=== PATIENT | female | born 1950 | race Caucasian/White ===

== ENCOUNTER 2017-05-18 14:06 | Emergency (ER) | payer MEDICARE, MEDICAID ==
[2017-05-18] MEDS ORDERED: Aspirin 81 MG Tab.Chew PO ONE (14:19)
[2017-05-18] MEDS ORDERED: Sodium Chloride 0.9% 10 ML Syringe FLUSH PRN (14:19)
--- NOTE | 2017-05-18 15:15 | CR ---
Left shoulder: Three views of the left shoulder were obtained. Comparison: No previous left shoulder study. Glenohumeral joint and acromioclavicular joint appears within normal limits. No fracture, dislocation or other bony abnormality is seen. Impression: 1. No abnormality is identified on three-view left shoulder study. Diagnostic code #1
--- NOTE | 2017-05-18 15:15 | CR ---
Chest: Frontal view of the chest was obtained. Comparison: Previous chest x-ray 11/21/15. Heart size and mediastinum are within normal limits for technique. Previous sternotomy is seen. Surgical clips are also noted within the left hilar region. Lungs are clear with no acute infiltrates. Bony structures are grossly intact. Impression: 1. Incidental findings. Nothing acute is seen on frontal chest x-ray. Diagnostic code #2
[2017-05-18 15:47] VITALS: BP 106/33
--- NOTE | 2017-05-18 15:52 | EDM.PDOC ---
ED HPI GENERAL MEDICAL PROBLEM - General Chief Complaint: Upper Extremity Injury/Pain Stated Complaint: [facility] Time Seen by Provider: 05/18/17 14:19 Source of Information: Reports: Patient, EMS History Limitations: Reports: No Limitations - History of Present Illness INITIAL COMMENTS - FREE TEXT/NARRATIVE: The patient presents with left shoulder pain. This has been going on for a couple days. She did not injure her shoulder in any way. She did not fall and she was not lifting anything. She denies chest pain, shortness of breath, abdominal pain, nausea, vomiting or diarrhea. There is no edema or pain in her legs. She has a history of coronary artery bipass graft. Moving or walking does not make it worse. Onset: Gradual Duration: Day(s): (Yesterday) Location: Reports: Upper Extremity, Left (Shoulder) Quality: Reports: Ache Severity: Mild Improves with: Reports: None Worsens with: Reports: None Associated Symptoms: Reports: No Other Symptoms Left Arm Pain Score (Numeric/FACES): 5 - Related Data Allergies Allergy/AdvReac Type Severity Reaction Status Date / Time dextrose [From Metamucil] Allergy Intermediate Hives Verified 05/18/17 14:11 psyllium husk Allergy Intermediate Hives Verified 05/18/17 14:11 [From Metamucil] psyllium seed Allergy Intermediate Hives Verified 05/18/17 14:11 [From Metamucil] sucrose [From Metamucil] Allergy Intermediate Hives Verified 05/18/17 14:11 Home Meds: Home Meds Carboxymethylcell/Hypromellose [GenTeal Moderate to Severe Gel Drops] 1 dose EYELF DAILY 08/20/15 [History] Furosemide [Lasix] 20 mg PO DAILY 08/20/15 [History] Insulin Aspart [NovoLOG] 20 unit SUBCUT WITHBREAKFAST 08/20/15 [History] Insulin Glarg,Human.Rec.Analog [Lantus] 54 unit SUBCUT QAM 08/20/15 [History] Lisinopril [Prinivil] 1.25 mg PO DAILY 08/20/15 [History] Metoprolol Succinate [Toprol XL] 100 mg PO DAILY 08/20/15 [History] Rosuvastatin Calcium [Crestor] 5 mg PO DAILY 08/20/15 [History] prednisoLONE Acetate [Pred Forte 1% Ophth Soln] 1 drop EYERT DAILY 08/20/15 [ History] B2/Vit A,C & E/Lut/Zeaxanth/Mn [Icaps] 1 each PO BID 11/21/15 [History] Insulin Aspart [Novolog Flexpen] 26 units SUBCUT WITHLUNCH 11/21/15 [History] Insulin Aspart [Novolog Flexpen] 30 units SUBCUT 1700 11/21/15 [History] Digoxin [Lanoxin] 125 mcg PO DAILY 10/20/16 [History] Insulin Glarg,Human.Rec.Analog [Lantus Solostar] 54 unit SUBCUT BEDTIME [History] Rivaroxaban [Xarelto] 20 mg PO QPM 10/20/16 [History] metFORMIN [Glucophage] 500 mg PO QAM 10/20/16 [History] Past Medical History Other HEENT History: deaf L ear, diabetic retinopathy, laser eye surgery, cataract surgery x 2 Cardiovascular History: Reports: Hypertension Gastrointestinal History: Reports: Other (See Below) Other Gastrointestinal History: draining umbilicus, morbid obesity Genitourinary History: Reports: Chronic Renal Insuffiency Other Genitourinary History: renal insufficiency Endocrine/Metabolic History: Reports: Diabetes, Type II, Obesity/BMI 30+ Other Dermatologic History: lesion removal from buttock - Past Surgical History Cardiovascular Surgical History: Reports: Coronary Artery Bypass Social & Family History - Tobacco Use Smoking Status *Q: Never Smoker Second Hand Smoke Exposure: No - Caffeine Use Caffeine Use: Reports: None - Alcohol Use Days Per Week of Alcohol Use: 0 - Recreational Drug Use Recreational Drug Use: No Drug Use in Last 12 Months: No Review of Systems - Review of Systems Review Of Systems: See Below Constitutional: Reports: No Symptoms Eyes: Reports: No Symptoms Ears: Reports: No Symptoms Nose: Reports: No Symptoms Mouth/Throat: Reports: No Symptoms Respiratory: Reports: No Symptoms Cardiovascular: Reports: No Symptoms GI/Abdominal: Reports: No Symptoms Genitourinary: Reports: No Symptoms Musculoskeletal: Reports: Shoulder Pain (Left) ED EXAM, GENERAL - Physical Exam Exam: See Below Exam Limited By: No Limitations General Appearance: Alert, No Apparent Distress Ears: Normal External Exam Nose: Normal Inspection Head: Atraumatic, Normocephalic Neck: Normal Inspection Respiratory/Chest: No Respiratory Distress, Lungs Clear, Normal Breath Sounds Cardiovascular: Regular Rate, Rhythm, No Edema, No Murmur GI/Abdominal: Soft, Non-Tender, No Organomegaly, No Mass Back Exam: Normal Inspection EKG INTERPRETATION EKG Date: 05/18/17 Time: 14:12 Rhythm: NSR Rate (Beats/Min): 67 [place]: Normal P-Wave: Present QRS: Normal ST-T: Other (Flipped T waves in the anterior leads) QT: Normal Comparison: No Change Course - Vital Signs Last Recorded V/S: Last Vital Signs Temp 97.0 F 05/18/17 14:11 Pulse 63 05/18/17 15:46 Resp 18 05/18/17 15:46 BP 106/33 L 05/18/17 15:46 Pulse Ox 95 05/18/17 15:46 - Orders/Labs/Meds Orders: Active Orders 24 hr Category Date Time Status Cardiac Monitoring [RC] . DIRECTED Care 05/18/17 14:19 Active EKG Documentation Completion [RC] STAT Care 05/18/17 14:20 Active Oxygen Therapy [RC] PRN Care 05/18/17 14:19 Active Peripheral IV Care [RC] . DIRECTED Care 05/18/17 14:20 Active Sodium Chloride 0.9% [Saline Flush] Med 05/18/17 14:19 Active 10 ml FLUSH ASDIRECTED PRN Peripheral IV Insertion Adult [OM.PC] Stat Oth 05/18/17 14:19 Ordered Medication Orders Sodium Chloride (Saline Flush) 10 ml FLUSH ASDIRECTED PRN PRN Reason: Keep Vein Open Last Admin: 05/18/17 14:31 Dose: 10 ml Labs: Laboratory Tests 05/18/17 05/18/17 05/18/17 Range/Units 14:25 14:25 14:25 WBC 8.49 (3.98-10.04) K/mm3 RBC 4.49 (3.98-5.22) M/mm3 Hgb 14.2 (11.2-15.7) gm/L Hct 42.8 (34.1-44.9) % MCV 95.3 H (79.4-94.8) fl MCH 31.6 (25.6-32.2) pg MCHC 33.2 (32.2-35.5) g/dl RDW Std Deviation 44.8 (36.4-46.3) fL Plt Count 157 L (182-369) K/mm3 MPV 11.0 (9.4-12.3) fl Neut % (Auto) 70.8 (34.0-71.1) % Lymph % (Auto) 15.2 L (19.3-51.7) % [place] % (Auto) 11.2 (4.7-12.5) % Eos % (Auto) 1.6 (0.7-5.8) Baso % (Auto) 0.4 (0.1-1.2) % Neut # (Auto) 6.01 (1.56-6.13) K/mm3 Lymph # (Auto) 1.29 (1.18-3.74) K/mm3 [place] # (Auto) 0.95 H (0.24-0.36) K/mm3 Eos # (Auto) 0.14 (0.04-0.36) K/mm3 Baso # (Auto) 0.03 (0.01-0.08) K/mm3 D-Dimer, Quantitative 0.24 (0.19-0.59) mg/L Sodium 142 (136-145) mEq/L Potassium 4.3 (3.5-5.1) mEq/L Chloride 105 (98-107) mEq/L Carbon Dioxide 26 (21-32) mEq/L Anion Gap 15.3 H (5-15) BUN 26 H (7-18) mg/dL Creatinine 1.7 H (0.55-1.02) mg/dL Est Cr Clr Drug Dosing 26.20 mL/min Estimated GFR (MDRD) 30 (>60) mL/min BUN/Creatinine Ratio 15.3 (14-18) Glucose 192 H (80-115) mg/dL Calcium 9.1 (8.5-10.1) mg/dL Total Bilirubin 0.8 (0.2-1.0) mg/dL AST 43 H (15-37) U/L ALT 48 (14-59) U/L Alkaline Phosphatase 67 (46-116) U/L Troponin I < 0.017 (0.00-0.056) ng/mL Total Protein 6.8 (6.4-8.2) g/dl Albumin 3.5 (3.4-5.0) g/dl Globulin 3.3 gm/dL Albumin/Globulin Ratio 1.1 (1-2) Meds: Medications Generic Name Dose Route Start Last Admin Trade Name Karen PRN Reason Stop Dose Admin Sodium Chloride 10 ml 05/18/17 14:19 05/18/17 14:31 Saline Flush FLUSH 10 ml ASDIRECTED PRN Administration Keep Vein Open Discontinued Medications Generic Name Dose Route Start Last Admin Trade Name Karen PRN Reason Stop Dose Admin Aspirin 324 mg 05/18/17 14:19 05/18/17 14:29 Aspirin PO 05/18/17 14:20 324 mg ONETIME ONE Administration - Re-Assessments/Exams Free Text/Narrative Re-Assessment/Exam: 05/18/17 15:54 I ordered an IV saline lock, aspirin, labs, EKG, CXR and an x-ray of her left shoulder. Her EKG shows a NSR with no acute changes. Her CXR looks good. Her shoulder looks good. Her CBC looks good. Her creatinine was elevated at 1.7. This has been elevated in the past. Her troponin is negative. This does not appear to be her heart. I will discharge her home. Departure - Departure Time of Disposition: 16:25 Disposition: Home, Self-Care 01 Condition: Good Clinical Impression: Left shoulder pain Qualifiers: Chronicity: acute Qualified Code(s): M25.512 - Pain in left shoulder - Discharge Information Referrals: Perla Richard MD [Primary Care Provider] - 1 Week Forms: ED Department Discharge Additional Instructions: Take tylenol for the pain. Continue your medication as prescribed. Please return if you are worse. - My Orders Last 24 Hours: My Active Orders 05/18/17 14:19 Cardiac Monitoring [RC] . DIRECTED Oxygen Therapy [RC] PRN Sodium Chloride 0.9% [Saline Flush] 10 ml FLUSH ASDIRECTED PRN Peripheral IV Insertion Adult [OM.PC] Stat 05/18/17 14:20 EKG Documentation Completion [RC] STAT Peripheral IV Care [RC] . DIRECTED - Assessment/Plan Last 24 Hours: My Active Orders 05/18/17 14:19 Cardiac Monitoring [RC] . DIRECTED Oxygen Therapy [RC] PRN Sodium Chloride 0.9% [Saline Flush] 10 ml FLUSH ASDIRECTED PRN Peripheral IV Insertion Adult [OM.PC] Stat 05/18/17 14:20 EKG Documentation Completion [RC] STAT Peripheral IV Care [RC] . DIRECTED
== END 2017-05-18 16:25 | disposition home or self-care (01) ==
LOC: JD.ED 14:06
DX: M25.512 Pain in left shoulder (principal); I12.9 Hypertensive chronic kidney disease with stage 1 through stage 4 chronic kidney disease, or unspecified chronic kidney disease; E11.22 Type 2 diabetes mellitus with diabetic chronic kidney disease; N18.9 Chronic kidney disease, unspecified; E66.9 Obesity, unspecified; Z95.1 Presence of aortocoronary bypass graft; Z98.49 Cataract extraction status, unspecified eye; Z79.4 Long term (current) use of insulin; Z79.899 Other long term (current) drug therapy; Z88.8 Allergy status to other drugs, medicaments and biological substances; Z68.41 Body mass index [BMI] 40.0-44.9, adult
CPT/HCPCS: 36415; 71010; 73030; 80053; 84484; 85025; 85379; 93005; 99284; A9270; J7050; 99283

== ENCOUNTER 2018-06-17 09:45 | Emergency (ER) | payer MEDICARE, MEDICAID ==
[2018-06-17 10:10] VITALS: BP 121/58
[2018-06-17] MEDS ORDERED: Cyclobenzaprine 10 MG Tab PO ONE (10:34)
[2018-06-17] MEDS ORDERED: Acetaminophen/HYDROcodone 325-5 MG Tab PO ONE (10:34)
--- NOTE | 2018-06-17 11:38 | EDM.PDOC ---
ED HPI GENERAL MEDICAL PROBLEM - General Chief Complaint: Neck Problem Stated Complaint: NECK PROBLEMS Time Seen by Provider: 06/17/18 10:05 Source of Information: Reports: Patient History Limitations: Reports: No Limitations - History of Present Illness INITIAL COMMENTS - FREE TEXT/NARRATIVE: The patient says she started having neck pain on the right side on Tuesday. She went to her chiropractor and she did an adjustment. She felt better after that but this morning she woke up with severe neck pain. She denies any injury. She has no numbness or weakness. She has not had much problems with her neck before. Onset: Gradual Duration: Day(s): (4) Location: Reports: Neck Quality: Reports: Sharp Severity: Severe Improves with: Reports: Immobilization Worsens with: Reports: Movement Context: Reports: Other (No injury noted) Associated Symptoms: Reports: No Other Symptoms Left Posterior Occipital Neck Pain Score (Numeric/FACES): 10 - Related Data Allergies Allergy/AdvReac Type Severity Reaction Status Date / Time dextrose [From Metamucil] Allergy Intermediate Hives Verified 06/17/18 09:56 psyllium husk Allergy Intermediate Hives Verified 06/17/18 09:56 [From Metamucil] psyllium seed Allergy Intermediate Hives Verified 06/17/18 09:56 [From Metamucil] sucrose [From Metamucil] Allergy Intermediate Hives Verified 06/17/18 09:56 Home Meds: Home Meds Carboxymethylcell/Hypromellose [GenTeal Moderate to Severe Gel Drops] 1 dose EYELF DAILY 08/20/15 [History] Furosemide [Lasix] 20 mg PO DAILY 08/20/15 [History] Insulin Aspart [NovoLOG] 25 unit SUBCUT WITHBREAKFAST 08/20/15 [History] Lisinopril [Prinivil] 2.5 mg PO DAILY 08/20/15 [History] Metoprolol Succinate [Toprol XL] 100 mg PO DAILY 08/20/15 [History] Rosuvastatin Calcium [Crestor] 5 mg PO DAILY 08/20/15 [History] B2/Vit A,C & E/Lut/Zeaxanth/Mn [Icaps] 1 each PO BID 11/21/15 [History] Insulin Aspart [Novolog Flexpen] 30 units SUBCUT WITHLUNCH 11/21/15 [History] Insulin Aspart [Novolog Flexpen] 38 units SUBCUT 2200 11/21/15 [History] Digoxin [Lanoxin] 125 mcg PO DAILY 10/20/16 [History] Rivaroxaban [Xarelto] 20 mg PO QPM 10/20/16 [History] metFORMIN [Glucophage] 500 mg PO BID 10/20/16 [History] Aspirin 81 mg PO DAILY 06/17/18 [History] Cyclobenzaprine [Flexeril] 10 mg PO TID PRN #20 tab 06/17/18 [Rx] Insulin Detemir [Levemir] 38 units SQ BID 06/17/18 [History] traMADol [Ultram] 50 mg PO Q6H PRN #20 tab 06/17/18 [Rx] Past Medical History HEENT History: Reports: Impaired Vision, Retinal Detachment Other HEENT History: deaf L ear, diabetic retinopathy, laser eye surgery, cataract surgery x 2 Cardiovascular History: Reports: High Cholesterol, Hypertension Gastrointestinal History: Reports: Other (See Below) Other Gastrointestinal History: draining umbilicus, morbid obesity Genitourinary History: Reports: Chronic Renal Insuffiency Other Genitourinary History: renal insufficiency Endocrine/Metabolic History: Reports: Diabetes, Type II, Obesity/BMI 30+ Other Dermatologic History: lesion removal from buttock - Past Surgical History HEENT Surgical History: Reports: Cataract Surgery, Retinal Other HEENT Surgeries/Procedures: Neck surgery (Aorta "opened up") Cardiovascular Surgical History: Reports: Coronary Artery Bypass GI Surgical History: Reports: Cholecystectomy Social & Family History - Tobacco Use Smoking Status *Q: Never Smoker Second Hand Smoke Exposure: Yes - Caffeine Use Caffeine Use: Reports: Soda - Recreational Drug Use Recreational Drug Use: No ED ROS GENERAL - Review of Systems Review Of Systems: See Below Constitutional: Reports: No Symptoms HEENT: Reports: No Symptoms Respiratory: Reports: No Symptoms Cardiovascular: Reports: No Symptoms Endocrine: Reports: No Symptoms GI/Abdominal: Reports: No Symptoms : Reports: No Symptoms Musculoskeletal: Reports: Neck Pain Skin: Reports: No Symptoms Neurological: Reports: No Symptoms ED EXAM, UPPER BACK/NECK PAIN - Physical Exam Exam: See Below Exam Limited By: No Limitations General Appearance: Alert, No Apparent Distress Ears Exam: Normal External Exam Nose Exam: Normal Inspection Head Exam: Atraumatic, Normocephalic Neck Exam: Tender Lateral (right side) Cardiovascular/Respiratory: Regular Rate, Rhythm, No M/R/G, Normal Peripheral Pulses, Normal Breath Sounds, No Respiratory Distress GI/Abdominal: Soft, Non-Tender, No Organomegaly, No Mass Course - Vital Signs Last Recorded V/S: Last Vital Signs Temp 98.1 F 06/17/18 10:04 Pulse 85 06/17/18 10:04 Resp 20 06/17/18 10:04 BP 121/58 L 06/17/18 10:04 Pulse Ox 95 06/17/18 10:04 - Orders/Labs/Meds Orders: Active Orders 24 hr Category Date Time Status Cervical Spine 2V or 3V [CR] Stat Exams 06/17/18 10:33 Taken Meds: Medications Discontinued Medications Generic Name Dose Route Start Last Admin Trade Name Freq PRN Reason Stop Dose Admin Hydrocodone Bitart/Acetaminophen 1 tab 06/17/18 10:34 06/17/18 10:40 [place] 325-5 Mg PO 06/17/18 10:35 1 tab ONETIME ONE Administration Cyclobenzaprine HCl 10 mg 06/17/18 10:34 06/17/18 10:40 Flexeril PO 06/17/18 10:35 10 mg ONETIME ONE Administration - Re-Assessments/Exams Free Text/Narrative Re-Assessment/Exam: 06/17/18 11:34 I ordered some flexeril 10mg by mouth and a hydrocodone 1 pill. I did an x-ray that showed degenerative changes. She feels better. I will get her on some flexeril and some ultram for pain. Departure - Departure Time of Disposition: 11:35 Disposition: Home, Self-Care 01 Condition: Good Clinical Impression: Cervical pain - Discharge Information *PRESCRIPTION DRUG MONITORING PROGRAM REVIEWED*: No *COPY OF PRESCRIPTION DRUG MONITORING REPORT IN PATIENT NIDA: No Prescriptions: Cyclobenzaprine [Flexeril] 10 mg PO TID PRN #20 tab PRN Reason: Pain traMADol [Ultram] 50 mg PO Q6H PRN #20 tab PRN Reason: Pain Referrals: Perla Ricahrd MD [Primary Care Provider] - 1 Week Additional Instructions: Take motrin or aleve for pain. If that does not help, take flexeril 3 times per day. If that does not help you can take some ultram. Follow up with your doctor in a week. Please return if you are worse. - My Orders Last 24 Hours: My Active Orders 06/17/18 10:33 Cervical Spine 2V or 3V [CR] Stat - Assessment/Plan Last 24 Hours: My Active Orders 06/17/18 10:33 Cervical Spine 2V or 3V [CR] Stat
--- NOTE | 2018-06-19 08:35 | CR ---
Cervical spine: AP, lateral and swimmer's views of the cervical spine were obtained. Comparison: No prior cervical spine imaging. Moderate disc space narrowing is noted at C5-C6 and C6-C7. Anterior osteophytes are seen at both these levels. Other disc spaces are maintained. Vertebral body heights are maintained. Surgical clips are seen within the right neck. Mild degenerative spurring is noted within the uncovertebral joints at C5-C6 and C6-C7. Slight carotid artery calcification is noted. Prior sternotomy is seen. Impression: 1. Degenerative change as noted above. Other incidental findings. Diagnostic code #2
== END 2018-06-17 11:55 | disposition home or self-care (01) ==
LOC: JD.ED 09:45
DX: M54.2 Cervicalgia (principal); I12.9 Hypertensive chronic kidney disease with stage 1 through stage 4 chronic kidney disease, or unspecified chronic kidney disease; N18.9 Chronic kidney disease, unspecified; E11.22 Type 2 diabetes mellitus with diabetic chronic kidney disease; E66.9 Obesity, unspecified; Z88.8 Allergy status to other drugs, medicaments and biological substances; Z79.4 Long term (current) use of insulin; Z79.82 Long term (current) use of aspirin
CPT/HCPCS: 72040; 99283; A9270

== ENCOUNTER 2022-11-06 22:09 | Emergency (ER) | payer MEDICARE, MEDICAID ==
[2022-11-07 02:39] VITALS: BP 160/46; PULSE 99
[2022-11-07] MEDS ORDERED: Sodium Chloride 0.9% 1,000 ML IV ONE (04:06)
[2022-11-07] MEDS ORDERED: Piperacillin/Tazobactam 4.5 GM in Sodium Chloride 0.9% 100 ML IV ONE (04:07)
[2022-11-07] MEDS ORDERED: Sodium Chloride 0.9% 100 ML ONE (04:18)
[2022-11-07] MEDS ORDERED: Piperacillin/Tazobactam 4.5 GM Vial ONE (04:19)
== END 2022-11-07 07:15 | disposition home or self-care (01) ==
LOC: JD.ED 22:09
DX: E11.42 Type 2 diabetes mellitus with diabetic polyneuropathy (principal); E11.22 Type 2 diabetes mellitus with diabetic chronic kidney disease; N18.9 Chronic kidney disease, unspecified; E78.00 Pure hypercholesterolemia, unspecified; E66.9 Obesity, unspecified; Z68.42 Body mass index [BMI] 45.0-49.9, adult; Z79.4 Long term (current) use of insulin; Z79.01 Long term (current) use of anticoagulants; Z79.899 Other long term (current) drug therapy; Z79.82 Long term (current) use of aspirin
CPT/HCPCS: 36415; 73620; 80048; 82947; 85025; 85652; 86140; 96361; 96365; 99283; J2543; J7030; 99284

== ENCOUNTER 2023-02-13 15:17 | Emergency (ER) | payer MEDICARE, MEDICAID ==
[2023-02-13 16:43] VITALS: BP 133/54; PULSE 62
== END 2023-02-13 18:48 | disposition home or self-care (01) ==
LOC: JD.ED 15:17
DX: R07.81 Pleurodynia (principal); I12.9 Hypertensive chronic kidney disease with stage 1 through stage 4 chronic kidney disease, or unspecified chronic kidney disease; N18.9 Chronic kidney disease, unspecified; E11.42 Type 2 diabetes mellitus with diabetic polyneuropathy; E78.00 Pure hypercholesterolemia, unspecified; E66.9 Obesity, unspecified; Z68.38 Body mass index [BMI] 38.0-38.9, adult; Z79.02 Long term (current) use of antithrombotics/antiplatelets; Z79.4 Long term (current) use of insulin; Z79.899 Other long term (current) drug therapy; Z79.84 Long term (current) use of oral hypoglycemic drugs; Z79.82 Long term (current) use of aspirin; Z95.1 Presence of aortocoronary bypass graft; Z88.8 Allergy status to other drugs, medicaments and biological substances
CPT/HCPCS: 71101-26-RT; 71101-RT; 99283

== ENCOUNTER 2023-03-17 07:01 | Day surgery (SDC) | payer MEDICARE, MEDICAID ==
[~2023-03-17 07:01] MED LIST: Lactated Ringers 1,000 ML IV SCH; Lidocaine 1%/Sod Bicarbonate in NS 8.4% 1 ML Syringe IDERM PRN; Sodium Chloride 0.9% 10 ML Syringe FLUSH PRN; Sodium Chloride 0.9% 10 ML Syringe FLUSH SCH
[2023-03-17] MEDS ORDERED: Midazolam 1 MG/ML 2 ML SDV ONE (07:13)
[2023-03-17] MEDS ORDERED: Propofol 200 MG/20 ML SDV ONE (07:13)
[2023-03-17] MEDS ORDERED: Lidocaine 1% 2 ML ONE (07:14)
[2023-03-17] MEDS ORDERED: fentaNYL 100 MCG/2 ML SDV ONE (07:14)
[2023-03-17] MEDS ORDERED: Lidocaine 1% 10 ML MDV ONE (07:20)
[2023-03-17] MEDS ORDERED: Bupivacaine 0.5% 30 ML SDV ONE (07:20)
[2023-03-17] MEDS ORDERED: fentaNYL 100 MCG/2 ML SDV IVPUSH PRN (07:33)
[2023-03-17] MEDS ORDERED: Ondansetron 4 MG/2 ML SDV IVPUSH PRN (07:33)
[2023-03-17] MEDS ORDERED: Lidocaine 1%/Sod Bicarbonate in NS 8.4% 1 ML Syringe IDERM SCH (07:46)
[2023-03-17] MEDS ORDERED: Lactated Ringers 1,000 ML IV SCH (08:00)
[2023-03-17] MEDS ORDERED: ceFAZolin 2 GM Vial ONE (08:13)
[2023-03-17] MEDS ORDERED: ePHEDrine 50 MG/ML SDV ONE (08:50)
[2023-03-17 10:53] VITALS: BP 145/69; PULSE 77
== END 2023-03-17 10:30 | disposition home or self-care (01) ==
LOC: JD.SDS 07:01
PROVIDERS: ATTEND Podiatrist Foot & Ankle Surgery
DX: L02.611 Cutaneous abscess of right foot (principal); S92.301A Fracture of unspecified metatarsal bone(s), right foot, initial encounter for closed fracture; I11.0 Hypertensive heart disease with heart failure; E11.319 Type 2 diabetes mellitus with unspecified diabetic retinopathy without macular edema; E11.21 Type 2 diabetes mellitus with diabetic nephropathy; E11.40 Type 2 diabetes mellitus with diabetic neuropathy, unspecified; I50.30 Unspecified diastolic (congestive) heart failure; E78.00 Pure hypercholesterolemia, unspecified; F32.A Depression, unspecified; E78.2 Mixed hyperlipidemia; E66.1 Drug-induced obesity; I48.0 Paroxysmal atrial fibrillation; I25.10 Atherosclerotic heart disease of native coronary artery without angina pectoris; N28.9 Disorder of kidney and ureter, unspecified; H61.23 Impacted cerumen, bilateral; Z79.899 Other long term (current) drug therapy; Z98.62 Peripheral vascular angioplasty status; Z88.8 Allergy status to other drugs, medicaments and biological substances; Z79.4 Long term (current) use of insulin; Z68.41 Body mass index [BMI] 40.0-44.9, adult; Z79.82 Long term (current) use of aspirin; Z79.84 Long term (current) use of oral hypoglycemic drugs
CPT/HCPCS: 10060; 28112; 87070; 87075; 87205; J0690; J2250; J2704; J3010; J3490; J7120

== ENCOUNTER 2023-10-17 16:58 | Emergency (ER) | payer MEDICARE, MEDICAID ==
[2023-10-17 20:21] VITALS: BP 146/53; PULSE 81
== END 2023-10-17 19:30 | disposition home or self-care (01) ==
LOC: JD.ED 16:58
DX: M19.031 Primary osteoarthritis, right wrist (principal); I12.9 Hypertensive chronic kidney disease with stage 1 through stage 4 chronic kidney disease, or unspecified chronic kidney disease; N18.9 Chronic kidney disease, unspecified; E11.22 Type 2 diabetes mellitus with diabetic chronic kidney disease; E66.9 Obesity, unspecified; E78.00 Pure hypercholesterolemia, unspecified; Z95.1 Presence of aortocoronary bypass graft; Z79.01 Long term (current) use of anticoagulants; Z79.4 Long term (current) use of insulin; Z79.84 Long term (current) use of oral hypoglycemic drugs; Z79.899 Other long term (current) drug therapy; Z91.018 Allergy to other foods; Z88.8 Allergy status to other drugs, medicaments and biological substances; Z68.41 Body mass index [BMI] 40.0-44.9, adult
CPT/HCPCS: 73110-26-RT; 73110-RT; 99283

== ENCOUNTER 2024-03-15 16:54 | Emergency (ER) | payer MEDICARE, MEDICAID ==
[2024-03-15 20:40] VITALS: BP 147/71; PULSE 67
== END 2024-03-15 20:40 | disposition home or self-care (01) ==
LOC: JD.ED 16:54
DX: S99.912A Unspecified injury of left ankle, initial encounter (principal); E78.00 Pure hypercholesterolemia, unspecified; I10 Essential (primary) hypertension; E11.9 Type 2 diabetes mellitus without complications; Z88.8 Allergy status to other drugs, medicaments and biological substances; Z79.4 Long term (current) use of insulin; Z79.84 Long term (current) use of oral hypoglycemic drugs; Z79.82 Long term (current) use of aspirin; Z79.899 Other long term (current) drug therapy; Z90.49 Acquired absence of other specified parts of digestive tract; X50.0XXA Overexertion from strenuous movement or load, initial encounter
CPT/HCPCS: 73610-26-LT; 73610-LT; 99283

== ENCOUNTER 2025-01-11 13:02 | Emergency (ER) | payer MEDICARE, MEDICAID ==
[2025-01-11 14:24] LABS: APPEARANCE,URINE SLT CLOUDY (Clear); BILIRUBIN,URINE NEGATIVE (Negative); COLOR,URINE YELLOW (Yellow); GLUCOSE,URINE NEGATIVE (Negative); KETONES,URINE NEGATIVE (Negative); LEUKOCYTE ESTERASE,URINE 3+ (Negative); NITRITE,URINE NEGATIVE (Negative); OCCULT BLOOD,URINE TRACE-LYSED (Negative); PH,URINE 5.5 (5.0-8.0); PROTEIN,URINE 1+ (Negative); UROBILINOGEN,URINE 0.2 (0.2-1.0)
[2025-01-11 14:35] LABS: BASOPHILS ABSOLUTE AUTO 0.1 K/mm3 (0.0-0.2); BASOPHILS PERCENT AUTO 0.7 % (0.0-1.0); EOSINOPHILS ABSOLUTE AUTO 0.5 K/mm3 (0.0-0.4); EOSINOPHILS PERCENT AUTO 5.8 % (0.0-6.0); HEMATOCRIT 35.1 % (37.0-47.0); HEMOGLOBIN 11.6 gm/dl (12.0-16.0); IMMATURE GRAN PERCENT AUTO 1.2 % (0.0-0.4); LYMPHOCYTES ABSOLUTE AUTO 1.7 K/mm3 (1.0-4.8); MEAN CORPUSCULAR HEMOGLOBIN 31.3 pg (28.0-32.0); MEAN CORPUSCULAR VOLUME 94.6 fl (83.0-99.0); MEAN PLATELET VOLUME 10.6 fl (9.4-12.3); MONOCYTES ABSOLUTE AUTO 0.7 K/mm3 (0.0-0.8); MONOCYTES PERCENT AUTO 8.5 % (0.0-8.0); NEUTROPHILS ABSOLUTE AUTO 5.3 K/mm3 (1.8-7.7); NEUTROPHILS PERCENT AUTO 63.8 % (41.0-71.0); PLATELET COUNT,PLT 140 K/mm3 (150-400); RED BLOOD CELL COUNT 3.71 M/mm3 (4.10-5.30); WHITE BLOOD CELL COUNT,WBC 8.27 K/mm3 (3.9-11.3)
[2025-01-11 14:36] LABS: WBC,URINE >100 /hpf (0-5)
[2025-01-11 14:37] LABS: BACTERIA,URINE MANY /hpf (FEW); MUCUS,URINE FEW /hpf (FEW)
[2025-01-11 14:59] LABS: ALBUMIN 3.4 g/dl (3.4-5.0); ANION GAP 17.2 (5-15); BILIRUBIN TOTAL 0.6 mg/dL (0.2-1.0); BUN/CREATININE RATIO 34.6 (14-18); CALCIUM 9.7 mg/dL (8.5-10.1); CREATININE 2.8 mg/dL (0.55-1.02); EST CRCL DRUG DOSING (CG) 13.52 mL/min; MAGNESIUM 2.2 mg/dL (1.8-2.4); PHOSPHORUS 4.7 mg/dL (2.6-4.7); PROTEIN TOTAL,TP 6.7 g/dl (6.4-8.2)
[2025-01-11 15:16] LABS: POTASSIUM,K 6.2 mEq/L (3.5-5.1)
[2025-01-11] MEDS: cefTRIAXone 1 GM Vial IVPUSH ONE (19:16)
[2025-01-11] MEDS: Sodium Chloride 0.9% 1,000 ML IV ONE (19:16)
[2025-01-11] MEDS: cefTRIAXone 1 GM Vial ONE (19:16)
[2025-01-11] MEDS: Sodium Zirconium Cyclosilicate 10 GM Packet PO ONE (19:35)
[2025-01-11] MEDS: Insulin Regular, Human 100 Units/ML 10 ML Vial SUBCUT ONE ×2 (20:39→22:16)
[2025-01-11] MEDS: 50% Dextrose in Water 50 ML Syringe IVPUSH ONE (20:40)
[2025-01-11] MEDS: Rivaroxaban 10 MG Tab PO ONE (20:41)
[2025-01-11] MEDS: Insulin Regular, Human 100 Units/ML 3 ML Vial SUBCUT ONE (20:51)
[2025-01-11 21:51] LABS: ANION GAP 15.2 (5-15); BUN/CREATININE RATIO 37.1 (14-18); CALCIUM 8.6 mg/dL (8.5-10.1); CREATININE 2.4 mg/dL (0.55-1.02); EST CRCL DRUG DOSING (CG) 15.77 mL/min; POTASSIUM,K 5.2 mEq/L (3.5-5.1)
[2025-01-12 02:31] VITALS: BP 125/53; PULSE 62
== END 2025-01-11 22:30 | disposition home or self-care (01) ==
LOC: JD.ED 13:02
DX: E87.5 Hyperkalemia (principal); N30.01 Acute cystitis with hematuria; I12.9 Hypertensive chronic kidney disease with stage 1 through stage 4 chronic kidney disease, or unspecified chronic kidney disease; N18.9 Chronic kidney disease, unspecified; E11.22 Type 2 diabetes mellitus with diabetic chronic kidney disease; M19.90 Unspecified osteoarthritis, unspecified site; E66.9 Obesity, unspecified; Z68.39 Body mass index [BMI] 39.0-39.9, adult; Z90.49 Acquired absence of other specified parts of digestive tract; Z88.8 Allergy status to other drugs, medicaments and biological substances; Z79.4 Long term (current) use of insulin; Z79.01 Long term (current) use of anticoagulants; Z79.82 Long term (current) use of aspirin; Z79.84 Long term (current) use of oral hypoglycemic drugs; Z79.899 Other long term (current) drug therapy
CPT/HCPCS: 36415; 74176; 74176-26; 80048; 80053; 81001; 82947; 83735; 84100; 85025; 93005; 96361; 96374; 96375; 99285-25; A9270-GY; J0696; J1815-GY; J3490; J7030